=== PATIENT | male | born 1965 | race Caucasian/White ===

== ENCOUNTER 2017-04-04 05:43 | Inpatient (IN) ==
[2017-04-04] MEDS ORDERED: VANCOMYCIN INJ 1,500 MG in SODIUM CHLORIDE 0.9% 500 ML IV STA (07:32)
[2017-04-04 07:38] LABS: Basophils # 0.1 10*3/uL (0.0-0.2); Basophils % 0.7 % (0.0-0.8); Eosinophils # 0.2 10*3/uL (0.0-0.87); Hematocrit 40.4 VOL% (42.0-52.0); Hemoglobin 13.6 GM/DL (14.0-18.0); Immature Granulocytes % 0.3 %; Immature Granulocytes Absolute 0.03 #; Lymphocytes # 2.3 10*3/uL (1.4-4.0); Lymphocytes % 26.9 % (21.2-54.2); Mean Corpuscular HGB Conc 33.7 GM/DL (32-36); Mean Corpuscular Hemoglobin 31 PG (27-34); Mean Corpuscular Volume 92.9 FL (87-102); Mean Platelet Volume 9.5 FL (9.6-12.0); Monocytes # 0.8 10*3/uL (0.11-0.8); Monocytes % 9.8 % (1.7-12.7); Neutrophils # 5.2 10*3/uL (1.4-7.4); Neutrophils % 60.3 % (38.7-73.9); Platelet Count 342 T/CUMM (130-400); Red Blood Count 4.35 MC/CUMM (3.8-5.5); White Blood Count 8.6 T/CUMM (4-12)
[2017-04-04 08:05] LABS: Calcium 8.9 MG/DL (8.5-10.1); Osmolality,Calculated 279.4 MOS/KG (273-304); Potassium 3.9 MMOL/L (3.5-5.1); Uric Acid 5.4 MG/DL (3.5-7.2)
[2017-04-04] MEDS ORDERED: ONDANSETRON 4 MG/2 ML VIAL IV PRN (08:55)
[2017-04-04] MEDS ORDERED: ACETAMINOPHEN 325 MG TABLET PO PRN (08:55)
[2017-04-04] MEDS: ENOXAPARIN 40 MG/0.4 ML SYRINGE SUBCUT SCH (11:19)
[2017-04-04] MEDS: PANTOPRAZOLE 40 MG TABLET PO SCH (11:19)
[2017-04-04 11:20] LABS: Folate 18.9 NG/ML (5.4-24.0)
[2017-04-04] MEDS ORDERED: ROPIVACAINE 0.5% 30 ML VIAL ONE (13:25)
[2017-04-04] MEDS: SODIUM CHLORIDE 0.9% 1,000 ML IV SCH ×2 (13:31→14:28)
[2017-04-04] MEDS: CEFTAROLINE 600 MG in SODIUM CHLORIDE 0.9% 100 ML IV SCH (14:28)
[2017-04-05] MEDS: SODIUM CHLORIDE 0.9% 1,000 ML IV SCH ×2 (00:28→20:07)
[2017-04-05] MEDS: CEFTAROLINE 600 MG in SODIUM CHLORIDE 0.9% 100 ML IV SCH ×3 (01:25→20:37)
[2017-04-05 06:31] LABS: Basophils # 0.1 10*3/uL (0.0-0.2); Basophils % 1.5 % (0.0-0.8); Eosinophils # 0.2 10*3/uL (0.0-0.87); Eosinophils % 3.4 % (0.00-10.9); Hematocrit 37.8 VOL% (42.0-52.0); Hemoglobin 12.4 GM/DL (14.0-18.0); Immature Granulocytes % 0.6 %; Immature Granulocytes Absolute 0.03 #; Lymphocytes # 2.1 10*3/uL (1.4-4.0); Lymphocytes % 38.7 % (21.2-54.2); Mean Corpuscular HGB Conc 32.8 GM/DL (32-36); Mean Corpuscular Hemoglobin 31 PG (27-34); Mean Corpuscular Volume 94.5 FL (87-102); Mean Platelet Volume 9.9 FL (9.6-12.0); Monocytes # 0.5 10*3/uL (0.11-0.8); Monocytes % 9.5 % (1.7-12.7); Neutrophils # 2.5 10*3/uL (1.4-7.4); Neutrophils % 46.3 % (38.7-73.9); Platelet Count 309 T/CUMM (130-400); White Blood Count 5.4 T/CUMM (4-12)
[2017-04-05] MEDS ORDERED: BUPIVACAINE 0.25% 50 ML VIAL ONE (06:34)
[2017-04-05 07:05] LABS: Albumin 2.8 G/DL (3.4-5.0); Bilirubin,Total 0.4 MG/DL (0.2-1.0); Calcium 8.2 MG/DL (8.5-10.1); Potassium 3.9 MMOL/L (3.5-5.1); Total Protein 6.6 G/DL (6.4-8.3)
[2017-04-05] MEDS ORDERED: diphenhydrAMINE 50 MG/1 ML VIAL ONE (07:59)
[2017-04-05] MEDS ORDERED: diphenhydrAMINE 50 MG/1 ML VIAL IV PRN (08:03)
[2017-04-05] MEDS ORDERED: MIDAZOLAM 2 MG/2 ML VIAL ONE (08:10)
[2017-04-05] MEDS ORDERED: fentaNYL 100 MCG/2 ML VIAL ONE (08:10)
[2017-04-05] MEDS ORDERED: PROPOFOL 200 MG/20 ML VIAL IV ONE (08:10)
[2017-04-05] MEDS ORDERED: KETAMINE 500 MG/10 ML VIAL ONE (08:11)
[2017-04-05] MEDS ORDERED: SODIUM CHLORIDE 0.9% 250 ML IV ONE (08:11)
[2017-04-05] MEDS: ENOXAPARIN 40 MG/0.4 ML SYRINGE SUBCUT SCH (08:39)
[2017-04-05] MEDS: PANTOPRAZOLE 40 MG TABLET PO SCH (08:39)
[2017-04-06 05:48] LABS: Basophils # 0.1 10*3/uL (0.0-0.2); Basophils % 0.8 % (0.0-0.8); Eosinophils # 0.1 10*3/uL (0.0-0.87); Eosinophils % 1.6 % (0.00-10.9); Hematocrit 37.1 VOL% (42.0-52.0); Hemoglobin 12.8 GM/DL (14.0-18.0); Immature Granulocytes % 0.3 %; Immature Granulocytes Absolute 0.02 #; Lymphocytes # 2.3 10*3/uL (1.4-4.0); Mean Corpuscular HGB Conc 34.5 GM/DL (32-36); Mean Corpuscular Hemoglobin 32 PG (27-34); Mean Corpuscular Volume 91.4 FL (87-102); Mean Platelet Volume 10.1 FL (9.6-12.0); Monocytes # 0.6 10*3/uL (0.11-0.8); Monocytes % 7.9 % (1.7-12.7); Neutrophils # 4.5 10*3/uL (1.4-7.4); Neutrophils % 59.4 % (38.7-73.9); Platelet Count 331 T/CUMM (130-400); Red Blood Count 4.06 MC/CUMM (3.8-5.5); White Blood Count 7.5 T/CUMM (4-12)
[2017-04-06 06:22] LABS: Calcium 8.1 MG/DL (8.5-10.1); Potassium 4.1 MMOL/L (3.5-5.1)
[2017-04-06] MEDS: SODIUM CHLORIDE 0.9% 1,000 ML IV SCH ×2 (06:37→17:24)
[2017-04-06] MEDS: PANTOPRAZOLE 40 MG TABLET PO SCH (08:49)
[2017-04-06] MEDS: ENOXAPARIN 40 MG/0.4 ML SYRINGE SUBCUT SCH (08:53)
[2017-04-06] MEDS: CEFTAROLINE 600 MG in SODIUM CHLORIDE 0.9% 100 ML IV SCH ×2 (10:24→21:53)
[2017-04-07] MEDS: SODIUM CHLORIDE 0.9% 1,000 ML IV SCH ×2 (04:43→15:16)
[2017-04-07] MEDS: ENOXAPARIN 40 MG/0.4 ML SYRINGE SUBCUT SCH (08:52)
[2017-04-07] MEDS: PANTOPRAZOLE 40 MG TABLET PO SCH (08:52)
[2017-04-07] MEDS: CEFTAROLINE 600 MG in SODIUM CHLORIDE 0.9% 100 ML IV SCH ×2 (08:55→20:31)
[2017-04-07] MEDS: MORPHINE 2 MG/1 ML SYRINGE IV PRN (15:03)
[2017-04-08] MEDS: SODIUM CHLORIDE 0.9% 1,000 ML IV SCH ×2 (05:45→17:13)
[2017-04-08] MEDS ORDERED: SILVER NITRATE STICK 1 EACH TOP ONE ×2 (07:32→07:55)
[2017-04-08] MEDS: MORPHINE 2 MG/1 ML SYRINGE IV PRN (07:41)
[2017-04-08] MEDS: PANTOPRAZOLE 40 MG TABLET PO SCH (08:34)
[2017-04-08] MEDS: CEFTAROLINE 600 MG in SODIUM CHLORIDE 0.9% 100 ML IV SCH ×2 (08:35→20:45)
[2017-04-08] MEDS: ENOXAPARIN 40 MG/0.4 ML SYRINGE SUBCUT SCH (08:35)
[2017-04-09] MEDS: SODIUM CHLORIDE 0.9% 1,000 ML IV SCH ×2 (04:27→16:09)
[2017-04-09] MEDS: CEFTAROLINE 600 MG in SODIUM CHLORIDE 0.9% 100 ML IV SCH ×2 (08:20→20:35)
[2017-04-09] MEDS: ENOXAPARIN 40 MG/0.4 ML SYRINGE SUBCUT SCH (09:48)
[2017-04-09] MEDS: PANTOPRAZOLE 40 MG TABLET PO SCH (09:48)
[2017-04-09] MEDS: NICOTINE 21 MG/24 HR PATCH TRANSDERM SCH (09:53)
[2017-04-10] MEDS: SODIUM CHLORIDE 0.9% 1,000 ML IV SCH ×2 (03:02→15:53)
[2017-04-10] MEDS: ENOXAPARIN 40 MG/0.4 ML SYRINGE SUBCUT SCH (08:43)
[2017-04-10] MEDS: NICOTINE 21 MG/24 HR PATCH TRANSDERM SCH (08:44)
[2017-04-10] MEDS: CEFTAROLINE 600 MG in SODIUM CHLORIDE 0.9% 100 ML IV SCH (08:44)
[2017-04-10] MEDS: PANTOPRAZOLE 40 MG TABLET PO SCH (08:44)
[2017-04-10 11:48] VITALS: BP 104/60
[2017-04-10] MEDS ORDERED: DIPH/TET/ACEL PERT BOOSTER VACCINE 0.5 ML VIAL IM ONE (12:56)
== END 2017-04-10 15:54 | disposition home or self-care (01) | DRG 505 ==
LOC: N.ED 05:43 → N.EDINP 07:51 → SUATTDRO 07:51 → N.2E 10:35
PROVIDERS: ADMIT Internal Medicine; ATTEND Internal Medicine

== ENCOUNTER 2017-08-16 13:13 | Inpatient (IN) ==
[2017-08-16] MEDS ORDERED: SODIUM CHLORIDE 0.9% 1,000 ML IV STA (14:12)
[2017-08-16] MEDS ORDERED: VANCOMYCIN INJ 1,000 MG in SODIUM CHLORIDE 0.9% 250 ML IV STA (14:12)
[2017-08-16 14:34] LABS: Basophils # 0.1 10*3/uL (0.0-0.2); Basophils % 0.8 % (0.0-0.8); Eosinophils # 0.2 10*3/uL (0.0-0.87); Eosinophils % 2.2 % (0.00-10.9); Hematocrit 47.6 VOL% (42.0-52.0); Hemoglobin 16.1 GM/DL (14.0-18.0); Immature Granulocytes % 0.6 %; Immature Granulocytes Absolute 0.05 #; Lymphocytes # 3.6 10*3/uL (1.4-4.0); Lymphocytes % 41.9 % (21.2-54.2); Mean Corpuscular HGB Conc 33.8 GM/DL (32-36); Mean Corpuscular Hemoglobin 31 PG (27-34); Mean Corpuscular Volume 91.7 FL (87-102); Mean Platelet Volume 10.2 FL (9.6-12.0); Monocytes # 0.7 10*3/uL (0.11-0.8); Monocytes % 7.8 % (1.7-12.7); Neutrophils % 46.7 % (38.7-73.9); Platelet Count 313 T/CUMM (130-400); Red Blood Count 5.19 MC/CUMM (3.8-5.5); Red Cell Distribution Width 12.7 % (9.3-17.3); White Blood Count 8.6 T/CUMM (4-12)
[2017-08-16 14:51] LABS: Alanine Aminotransferase 62 U/L (16-61); Albumin 4.1 G/DL (3.4-5.0); Alkaline Phosphatase 113 U/L (45-117); Aspartate Amino Transferase 66 U/L (0-37); Blood Urea Nitrogen 11 MG/DL (7-18); Glucose 76 MG/DL (74-106); Lactic Acid 1.7 MMOL/L (0.4-2.0); Osmolality,Calculated 272.7 MOS/KG (273-304); Potassium 4.4 MMOL/L (3.5-5.1); Sodium 138 MMOL/L (136-145); Total Protein 8.9 G/DL (6.4-8.3)
[2017-08-16 14:52] LABS: PT Patient Result 10.2 SECS; Troponin I Only < 0.015 NG/ML (0.00-0.045)
[2017-08-16 15:24] LABS: Barbiturates Screen,Urine Negative (Negative); Benzodiazepines Screen,Urine Negative (Negative); Cannabinoid Screen,Urine Negative (Negative); Opiate Screen,Urine Negative (Negative); Phencyclidine Screen,Urine Negative (Negative)
[2017-08-16 15:29] LABS: Apearance,Urine CLEAR (Clear); Bilirubin,Urine Negative (Negative); Blood, Urine Negative (Negative); Glucose,Urine (UA) Negative (Negative); Ketones,Urine Negative (Negative); Mucus,Urine Occasional /LPF (Occasional); Nitrite,Urine Negative (Negative); Protein,Urine Negative; RBC,Urine <1 /HPF (0-4); Urine Color Yellow (Yellow); Urine Specific Gravity 1.025 (1.001-1.035); WBC,Urine 1 /HPF (0-6)
[2017-08-16] MEDS ORDERED: GLUCAGON 1 MG VIAL IM PRN (16:24)
[2017-08-16] MEDS ORDERED: DEXTROSE 50% 25 GM/50 ML VIAL IV PRN (16:24)
[2017-08-16] MEDS ORDERED: ONDANSETRON 4 MG/2 ML VIAL IV PRN (16:24)
[2017-08-16] MEDS ORDERED: DOCUSATE SODIUM 100 MG CAPSULE PO PRN (16:24)
[2017-08-16] MEDS ORDERED: ACETAMINOPHEN 325 MG TABLET PO PRN (16:24)
[2017-08-16 16:52] LABS: Sedimentation Rate-Westergren 20 MM/HR (0-20)
[2017-08-16] MEDS: INSULIN REGULAR 100 UNIT/ML SUBCUT SCH (17:52)
[2017-08-16] MEDS: SODIUM CHLORIDE 0.9% 1,000 ML IV SCH (18:23)
[2017-08-16] MEDS: VANCOMYCIN INJ 1,250 MG in SODIUM CHLORIDE 0.9% 250 ML IV SCH (20:57)
[2017-08-17] MEDS: INSULIN REGULAR 100 UNIT/ML SUBCUT SCH ×5 (02:57→21:21)
[2017-08-17] MEDS: SODIUM CHLORIDE 0.9% 1,000 ML IV SCH ×2 (02:58→19:49)
[2017-08-17 05:13] LABS: Basophils # 0.1 10*3/uL (0.0-0.2); Eosinophils # 0.2 10*3/uL (0.0-0.87); Eosinophils % 2.5 % (0.00-10.9); Hematocrit 42.1 VOL% (42.0-52.0); Hemoglobin 14.4 GM/DL (14.0-18.0); Immature Granulocytes % 0.6 %; Immature Granulocytes Absolute 0.05 #; Lymphocytes # 3.8 10*3/uL (1.4-4.0); Lymphocytes % 45.3 % (21.2-54.2); Mean Corpuscular HGB Conc 34.2 GM/DL (32-36); Mean Corpuscular Hemoglobin 31 PG (27-34); Mean Corpuscular Volume 89.2 FL (87-102); Mean Platelet Volume 10.3 FL (9.6-12.0); Monocytes # 0.7 10*3/uL (0.11-0.8); Monocytes % 8.4 % (1.7-12.7); Neutrophils # 3.5 10*3/uL (1.4-7.4); Neutrophils % 42.2 % (38.7-73.9); Platelet Count 270 T/CUMM (130-400); Red Blood Count 4.72 MC/CUMM (3.8-5.5); Red Cell Distribution Width 12.5 % (9.3-17.3); White Blood Count 8.4 T/CUMM (4-12)
[2017-08-17 05:45] LABS: Calcium 8.3 MG/DL (8.5-10.1); Osmolality,Calculated 274.5 MOS/KG (273-304); Potassium 3.8 MMOL/L (3.5-5.1)
[2017-08-17] MEDS: PANTOPRAZOLE 40 MG TABLET PO SCH (08:24)
[2017-08-17] MEDS: VANCOMYCIN INJ 1,250 MG in SODIUM CHLORIDE 0.9% 250 ML IV SCH ×2 (08:30→21:21)
[2017-08-17] MEDS ORDERED: LIDOCAINE 1%/EPI INJ 20 ML VIAL ONE (10:42)
[2017-08-17] MEDS ORDERED: SEVOFLURANE 1 UNIT/15 MINUTE INH ONE (11:40)
[2017-08-17] MEDS ORDERED: PROPOFOL 200 MG/20 ML VIAL IV ONE (11:40)
[2017-08-17] MEDS ORDERED: DEXAMETHASONE 10 MG/1 ML VIAL ONE (11:41)
[2017-08-17] MEDS ORDERED: ONDANSETRON 4 MG/2 ML VIAL ONE (11:41)
[2017-08-17] MEDS ORDERED: KETOROLAC 30 MG/1 ML VIAL ONE (11:41)
[2017-08-17] MEDS ORDERED: MIDAZOLAM 2 MG/2 ML VIAL ONE (11:41)
[2017-08-17] MEDS ORDERED: PHENYLEPHRINE 1 MG/10 ML SYRINGE IV ONE (11:41)
[2017-08-17] MEDS ORDERED: fentaNYL 100 MCG/2 ML VIAL ONE (11:41)
[2017-08-17] MEDS: MORPHINE 4 MG/1 ML VIAL IV PRN (14:34)
[2017-08-18] MEDS: MORPHINE 4 MG/1 ML VIAL IV PRN ×3 (03:37→20:04)
[2017-08-18] MEDS: SODIUM CHLORIDE 0.9% 1,000 ML IV SCH ×3 (03:50→17:22)
[2017-08-18] MEDS: INSULIN REGULAR 100 UNIT/ML SUBCUT SCH ×4 (08:09→22:43)
[2017-08-18] MEDS: PANTOPRAZOLE 40 MG TABLET PO SCH (08:10)
[2017-08-18] MEDS: metFORMIN 500 MG TABLET PO SCH (08:52)
[2017-08-18] MEDS: VANCOMYCIN INJ 1,250 MG in SODIUM CHLORIDE 0.9% 250 ML IV SCH ×2 (08:52→17:22)
[2017-08-19] MEDS: VANCOMYCIN INJ 1,250 MG in SODIUM CHLORIDE 0.9% 250 ML IV SCH ×3 (00:57→17:21)
[2017-08-19] MEDS: SODIUM CHLORIDE 0.9% 1,000 ML IV SCH ×2 (03:30→15:40)
[2017-08-19] MEDS: INSULIN REGULAR 100 UNIT/ML SUBCUT SCH ×4 (07:51→23:49)
[2017-08-19] MEDS: PANTOPRAZOLE 40 MG TABLET PO SCH (09:15)
[2017-08-19] MEDS: metFORMIN 500 MG TABLET PO SCH (09:15)
[2017-08-20] MEDS: SODIUM CHLORIDE 0.9% 1,000 ML IV SCH ×2 (00:49→08:58)
[2017-08-20] MEDS: VANCOMYCIN INJ 1,250 MG in SODIUM CHLORIDE 0.9% 250 ML IV SCH ×2 (00:54→08:52)
[2017-08-20 00:55] LABS: Calcium 8.2 MG/DL (8.5-10.1); Osmolality,Calculated 283.8 MOS/KG (273-304); Potassium 3.6 MMOL/L (3.5-5.1)
[2017-08-20] MEDS: INSULIN REGULAR 100 UNIT/ML SUBCUT SCH ×2 (08:03→12:16)
[2017-08-20] MEDS: metFORMIN 500 MG TABLET PO SCH (08:52)
[2017-08-20 12:14] VITALS: BP 120/77
== END 2017-08-20 15:43 | disposition home or self-care (01) | DRG 617 ==
LOC: N.ED 13:13 → N.EDINP 15:25 → N.2E 17:38
PROVIDERS: ADMIT Internal Medicine Geriatric Medicine; ATTEND Internal Medicine Geriatric Medicine

== ENCOUNTER 2020-02-02 12:30 | Inpatient (IN) ==
[2020-02-02 15:24] LABS: Basophils # 0.1 10*3/uL (0.0-0.2); Basophils % 0.6 % (0.0-0.8); Eosinophils # 0.3 10*3/uL (0.0-0.87); Eosinophils % 2.7 % (0.00-10.9); Hematocrit 42.3 VOL% (42.0-52.0); Hemoglobin 14.6 GM/DL (14.0-18.0); Immature Granulocytes % 0.4 %; Immature Granulocytes Absolute 0.05 #; Lymphocytes # 2.5 10*3/uL (1.4-4.0); Lymphocytes % 19.8 % (21.2-54.2); Mean Corpuscular HGB Conc 34.5 GM/DL (32-36); Mean Platelet Volume 9.7 FL (9.6-12.0); Monocytes % 9.4 % (1.7-12.7); Neutrophils % 67.1 % (38.7-73.9); Platelet Count 303 T/CUMM (130-400); Red Blood Count 4.55 MC/CUMM (3.8-5.5); Red Cell Distribution Width 11.9 % (9.3-17.3); White Blood Count 12.8 T/CUMM (4-12)
[2020-02-02 15:44] LABS: Albumin 3.3 G/DL (3.4-5.0); Bilirubin,Total 0.8 MG/DL (0.2-1.0); Calcium 8.6 MG/DL (8.5-10.1); Osmolality,Calculated 266.2 MOS/KG (273-304); Total Protein 8.3 G/DL (6.4-8.3)
[2020-02-02 15:46] LABS: Barbiturates Screen,Urine Negative (Negative); Benzodiazepines Screen,Urine Negative (Negative); Cannabinoid Screen,Urine Negative (Negative); Opiate Screen,Urine Negative (Negative); Phencyclidine Screen,Urine Negative (Negative)
[2020-02-02] MEDS ORDERED: GLUCAGON 1 MG VIAL IM PRN ×2 (17:52)
[2020-02-02] MEDS ORDERED: DEXTROSE 50% 25 GM/50 ML VIAL IV PRN ×2 (17:52)
[2020-02-02] MEDS: SODIUM CHLORIDE 0.9% 1,000 ML IV SCH (22:53)
[2020-02-02] MEDS: INSULIN LISPRO 100 UNIT/ML SUBCUT SCH (22:54)
[2020-02-02] MEDS: PIPERACILLIN/TAZOBACTAM 3,375 MG in SODIUM CHLORIDE 0.9% 100 ML IV SCH (22:54)
[2020-02-02] MEDS: NICOTINE 14 MG/24 HR PATCH TRANSDERM SCH (22:55)
[2020-02-02] MEDS: VANCOMYCIN INJ 1,500 MG in SODIUM CHLORIDE 0.9% 500 ML IV SCH (22:55)
[2020-02-03] MEDS: PIPERACILLIN/TAZOBACTAM 3,375 MG in SODIUM CHLORIDE 0.9% 100 ML IV SCH ×3 (05:04→21:32)
[2020-02-03 05:41] LABS: Basophils # 0.1 10*3/uL (0.0-0.2); Eosinophils # 0.4 10*3/uL (0.0-0.87); Eosinophils % 5.4 % (0.00-10.9); Hematocrit 39.8 VOL% (42.0-52.0); Hemoglobin 13.4 GM/DL (14.0-18.0); Immature Granulocytes % 0.7 %; Immature Granulocytes Absolute 0.06 #; Lymphocytes # 2.4 10*3/uL (1.4-4.0); Lymphocytes % 28.9 % (21.2-54.2); Mean Corpuscular HGB Conc 33.7 GM/DL (32-36); Mean Corpuscular Volume 94.1 FL (87-102); Mean Platelet Volume 9.9 FL (9.6-12.0); Monocytes % 11.1 % (1.7-12.7); Neutrophils % 52.9 % (38.7-73.9); Platelet Count 268 T/CUMM (130-400); Red Blood Count 4.23 MC/CUMM (3.8-5.5); Red Cell Distribution Width 11.9 % (9.3-17.3); White Blood Count 8.1 T/CUMM (4-12)
[2020-02-03 06:08] LABS: Calcium 8.5 MG/DL (8.5-10.1); Osmolality,Calculated 275.7 MOS/KG (273-304)
[2020-02-03] MEDS: VANCOMYCIN INJ 1,500 MG in SODIUM CHLORIDE 0.9% 500 ML IV SCH (10:06)
[2020-02-03] MEDS: NICOTINE 14 MG/24 HR PATCH TRANSDERM SCH ×2 (10:06→10:17)
[2020-02-03] MEDS: INSULIN LISPRO 100 UNIT/ML SUBCUT SCH ×4 (10:07→21:40)
[2020-02-03] MEDS: FOLIC ACID 1 MG TABLET PO SCH (10:08)
[2020-02-03] MEDS: lisinopriL 10 MG TABLET PO SCH (10:08)
[2020-02-03] MEDS: THIAMINE 100 MG TABLET PO SCH (10:08)
[2020-02-03] MEDS: SODIUM CHLORIDE 0.9% 1,000 ML IV SCH ×2 (10:11→15:41)
[2020-02-03] MEDS ORDERED: ALBUTEROL 2.5 MG/3 ML NEB RESP TX ONE (10:11)
[2020-02-03] MEDS ORDERED: DIAZEPAM 5 MG TABLET PO ONE (10:11)
[2020-02-03] MEDS ORDERED: FAMOTIDINE 20 MG TABLET PO ONE (10:30)
[2020-02-03] MEDS ORDERED: LIDOCAINE 2% 5 ML VIAL ONE (11:10)
[2020-02-03] MEDS ORDERED: propofoL 200 MG/20 ML VIAL IV ONE (11:10)
[2020-02-03] MEDS ORDERED: MIDAZOLAM 2 MG/2 ML VIAL ONE (11:10)
[2020-02-03] MEDS ORDERED: fentaNYL 100 MCG/2 ML VIAL ONE (11:11)
[2020-02-03] MEDS ORDERED: HYDROmorphone 2 MG/1 ML VIAL ONE (11:50)
[2020-02-03] MEDS ORDERED: KETOROLAC 30 MG/1 ML VIAL ONE (11:53)
[2020-02-03] MEDS ORDERED: ONDANSETRON 4 MG/2 ML VIAL IV PRN (12:34)
[2020-02-03] MEDS ORDERED: HYDROmorphone 2 MG/1 ML VIAL IV PRN (12:34)
[2020-02-03] MEDS ORDERED: GLUCAGON 1 MG VIAL IM PRN (14:39)
[2020-02-03] MEDS ORDERED: DEXTROSE 50% 25 GM/50 ML VIAL IV PRN (14:39)
[2020-02-04] MEDS: VANCOMYCIN INJ 1,500 MG in SODIUM CHLORIDE 0.9% 500 ML IV SCH ×2 (01:38→09:30)
[2020-02-04] MEDS: PIPERACILLIN/TAZOBACTAM 3,375 MG in SODIUM CHLORIDE 0.9% 100 ML IV SCH ×2 (03:41→13:47)
[2020-02-04 05:49] LABS: Basophils # 0.1 10*3/uL (0.0-0.2); Eosinophils # 0.3 10*3/uL (0.0-0.87); Eosinophils % 3.7 % (0.00-10.9); Hematocrit 39.6 VOL% (42.0-52.0); Hemoglobin 12.9 GM/DL (14.0-18.0); Immature Granulocytes % 0.4 %; Immature Granulocytes Absolute 0.03 #; Lymphocytes # 1.9 10*3/uL (1.4-4.0); Lymphocytes % 23.3 % (21.2-54.2); Mean Corpuscular HGB Conc 32.6 GM/DL (32-36); Mean Corpuscular Volume 95.7 FL (87-102); Mean Platelet Volume 10.3 FL (9.6-12.0); Monocytes % 7.9 % (1.7-12.7); Neutrophils % 63.7 % (38.7-73.9); Platelet Count 286 T/CUMM (130-400); Red Blood Count 4.14 MC/CUMM (3.8-5.5); Red Cell Distribution Width 11.8 % (9.3-17.3); White Blood Count 8.1 T/CUMM (4-12)
[2020-02-04 05:59] LABS: Calcium 8.2 MG/DL (8.5-10.1); Osmolality,Calculated 283.1 MOS/KG (273-304)
[2020-02-04] MEDS: INSULIN LISPRO 100 UNIT/ML SUBCUT SCH ×2 (07:52→12:18)
[2020-02-04] MEDS: FOLIC ACID 1 MG TABLET PO SCH (09:30)
[2020-02-04] MEDS: THIAMINE 100 MG TABLET PO SCH (09:30)
[2020-02-04] MEDS: lisinopriL 10 MG TABLET PO SCH (09:30)
[2020-02-04] MEDS: NICOTINE 14 MG/24 HR PATCH TRANSDERM SCH (09:36)
[2020-02-04 11:19] VITALS: BP 122/80
== END 2020-02-04 15:40 | disposition home health service (06) | DRG 305 ==
LOC: N.ED 12:30 → N.EDINP 17:52 → N.3E 20:40
PROVIDERS: ADMIT Internal Medicine; ATTEND Internal Medicine

== ENCOUNTER 2020-04-15 10:37 | Inpatient (IN) ==
[2020-04-15 12:02] LABS: Basophils # 0.1 10*3/uL (0.0-0.2); Basophils % 0.7 % (0.0-0.8); Eosinophils # 0.1 10*3/uL (0.0-0.87); Eosinophils % 0.4 % (0.00-10.9); Hematocrit 42.5 VOL% (42.0-52.0); Immature Granulocytes % 0.8 %; Immature Granulocytes Absolute 0.11 #; Lymphocytes # 3.3 10*3/uL (1.4-4.0); Lymphocytes % 23.6 % (21.2-54.2); Mean Corpuscular HGB Conc 35.3 GM/DL (32-36); Mean Corpuscular Volume 88.9 FL (87-102); Monocytes % 8.4 % (1.7-12.7); Neutrophils % 66.1 % (38.7-73.9); Platelet Count 320 T/CUMM (130-400); Red Blood Count 4.78 MC/CUMM (3.8-5.5); Red Cell Distribution Width 12.4 % (9.3-17.3)
[2020-04-15 12:22] LABS: Albumin 3.8 G/DL (3.4-5.0); Bilirubin,Total 1.4 MG/DL (0.2-1.0); Calcium 9.2 MG/DL (8.5-10.1); Osmolality,Calculated 278.5 MOS/KG (273-304); Potassium 3.7 MMOL/L (3.5-5.1)
[2020-04-15 12:41] LABS: Bilirubin,Urine Negative (Negative); Blood, Urine Negative (Negative); Glucose,Urine (UA) Negative (Negative); Hyaline Casts,Urine 5 /LPF (0-3); Ketones,Urine Negative (Negative); Mucus,Urine Few /LPF (Occasional); Nitrite,Urine Negative (Negative); Protein,Urine 30 MG/DL; RBC,Urine 1 /HPF (0-4); Urine Appearance CLEAR (Clear); Urine Color Amber (Yellow); Urine Specific Gravity 1.023 (1.001-1.035); WBC,Urine 4 /HPF (0-6)
[2020-04-15 12:46] LABS: Barbiturates Screen,Urine Negative (Negative); Benzodiazepines Screen,Urine Negative (Negative); Cannabinoid Screen,Urine Negative (Negative); Opiate Screen,Urine Negative (Negative); Phencyclidine Screen,Urine Negative (Negative)
[2020-04-15] MEDS ORDERED: ACETAMINOPHEN 325 MG TABLET PO PRN (14:13)
[2020-04-15] MEDS ORDERED: BISACODYL 5 MG TABLET PO PRN (14:13)
[2020-04-15] MEDS ORDERED: HYDROmorphone 2 MG/1 ML VIAL IV PRN (14:13)
[2020-04-15] MEDS ORDERED: ONDANSETRON 4 MG/2 ML VIAL IV PRN (14:13)
[2020-04-15] MEDS ORDERED: LORazepam 2 MG/1 ML VIAL IV PRN (14:50)
[2020-04-15] MEDS: LACTATED RINGERS 1,000 ML IV SCH (15:45)
[2020-04-15] MEDS: PIPERACILLIN/TAZOBACTAM 3,375 MG in SODIUM CHLORIDE 0.9% 100 ML IV SCH ×2 (15:45→23:18)
[2020-04-15] MEDS: chlordiazePOXIDE 25 MG CAPSULE PO SCH ×2 (15:50→21:01)
[2020-04-15 16:08] LABS: PT Patient Result 10.7 SECS (9.8-11.9); Partial Thromboplastin Time 27.9 SECS (23.9-33.8)
[2020-04-15 19:59] LABS: Vitamin B12 341 PG/ML (211-911)
[2020-04-16] MEDS: chlordiazePOXIDE 25 MG CAPSULE PO SCH ×4 (02:43→23:10)
[2020-04-16 05:37] LABS: Basophils # 0.1 10*3/uL (0.0-0.2); Basophils % 1.2 % (0.0-0.8); Eosinophils # 0.6 10*3/uL (0.0-0.87); Eosinophils % 6.4 % (0.00-10.9); Hematocrit 42.2 VOL% (42.0-52.0); Hemoglobin 13.9 GM/DL (14.0-18.0); Immature Granulocytes % 0.6 %; Immature Granulocytes Absolute 0.05 #; Lymphocytes # 3.5 10*3/uL (1.4-4.0); Lymphocytes % 39.2 % (21.2-54.2); Mean Corpuscular HGB Conc 32.9 GM/DL (32-36); Mean Corpuscular Volume 92.7 FL (87-102); Mean Platelet Volume 10.5 FL (9.6-12.0); Monocytes % 9.4 % (1.7-12.7); Neutrophils % 43.2 % (38.7-73.9); Platelet Count 288 T/CUMM (130-400); Red Blood Count 4.55 MC/CUMM (3.8-5.5); Red Cell Distribution Width 12.5 % (9.3-17.3); White Blood Count 8.9 T/CUMM (4-12)
[2020-04-16 06:07] LABS: Albumin 3.2 G/DL (3.4-5.0); Calcium 8.4 MG/DL (8.5-10.1); Osmolality,Calculated 279.4 MOS/KG (273-304); Potassium 3.5 MMOL/L (3.5-5.1); Total Protein 7.2 G/DL (6.4-8.3)
[2020-04-16] MEDS: PIPERACILLIN/TAZOBACTAM 3,375 MG in SODIUM CHLORIDE 0.9% 100 ML IV SCH ×2 (06:40→16:16)
[2020-04-16] MEDS: LACTATED RINGERS 1,000 ML IV SCH ×2 (07:03)
[2020-04-16] MEDS: PANTOPRAZOLE 40 MG TABLET PO SCH (09:06)
[2020-04-16] MEDS: THIAMINE 100 MG TABLET PO SCH (09:06)
[2020-04-16] MEDS: FOLIC ACID 1 MG TABLET PO SCH (09:06)
[2020-04-16 10:57] LABS: Folate > 24.0 NG/ML (5.38-24.0)
[2020-04-16] MEDS: KETOROLAC 0.5% OPH SOLN 5 ML BOTTLE LEFT EYE SCH (20:55)
[2020-04-16] MEDS: prednisoLONE ACETATE 1% OPH SUSP 5 ML BOTTLE LEFT EYE SCH (20:55)
[2020-04-16] MEDS: OFLOXACIN 0.3% OPH SOLN 5 ML BOTTLE LEFT EYE SCH (20:55)
[2020-04-16] MEDS: ENOXAPARIN 40 MG/0.4 ML SYRINGE SUBCUT SCH (20:56)
[2020-04-17] MEDS: LACTATED RINGERS 1,000 ML IV SCH ×2 (01:41→09:26)
[2020-04-17] MEDS: PIPERACILLIN/TAZOBACTAM 3,375 MG in SODIUM CHLORIDE 0.9% 100 ML IV SCH ×3 (01:46→17:06)
[2020-04-17 06:04] LABS: Basophils # 0.1 10*3/uL (0.0-0.2); Basophils % 1.6 % (0.0-0.8); Eosinophils # 0.5 10*3/uL (0.0-0.87); Eosinophils % 6.5 % (0.00-10.9); Hematocrit 42.1 VOL% (42.0-52.0); Immature Granulocytes % 0.7 %; Immature Granulocytes Absolute 0.05 #; Lymphocytes # 3.5 10*3/uL (1.4-4.0); Lymphocytes % 45.4 % (21.2-54.2); Mean Corpuscular HGB Conc 33.3 GM/DL (32-36); Mean Corpuscular Volume 92.9 FL (87-102); Mean Platelet Volume 10.1 FL (9.6-12.0); Monocytes % 6.9 % (1.7-12.7); Neutrophils % 38.9 % (38.7-73.9); Platelet Count 303 T/CUMM (130-400); Red Blood Count 4.53 MC/CUMM (3.8-5.5); Red Cell Distribution Width 12.4 % (9.3-17.3); White Blood Count 7.7 T/CUMM (4-12)
[2020-04-17 06:09] LABS: Calcium 8.6 MG/DL (8.5-10.1); Osmolality,Calculated 277.5 MOS/KG (273-304)
[2020-04-17] MEDS ORDERED: fentaNYL 100 MCG/2 ML VIAL ONE (06:22)
[2020-04-17] MEDS ORDERED: MIDAZOLAM 2 MG/2 ML VIAL ONE (06:22)
[2020-04-17] MEDS ORDERED: LIDOCAINE 2% 5 ML VIAL ONE ×3 (06:23→06:29)
[2020-04-17] MEDS ORDERED: ONDANSETRON 4 MG/2 ML VIAL ONE (06:23)
[2020-04-17] MEDS ORDERED: VANCOMYCIN 500 MG VIAL ONE ×2 (06:23→06:25)
[2020-04-17] MEDS ORDERED: EPINEPHrine 1 MG/ML VIAL ONE (06:23)
[2020-04-17] MEDS ORDERED: PHENYLEPHRINE 1 MG/10 ML SYRINGE IV ONE ×2 (06:23→10:29)
[2020-04-17] MEDS ORDERED: propofoL 200 MG/20 ML VIAL IV ONE (06:23)
[2020-04-17] MEDS ORDERED: BALANCED SALT IRRIG SOLN 15 ML BOTTLE ONE (06:23)
[2020-04-17] MEDS ORDERED: TETRACAINE 0.5% OPH SOLN 4 ML BOTTLE ONE (06:24)
[2020-04-17] MEDS ORDERED: HYALURONATE/CHONDROITIN 1 EACH KIT INTRAOCULR ONE ×2 (06:24→08:16)
[2020-04-17] MEDS ORDERED: BUPIVACAINE MPF 0.25% 30 ML VIAL ONE (06:29)
[2020-04-17] MEDS ORDERED: prednisoLONE ACETATE 1% OPH SUSP 5 ML BOTTLE ONE (06:54)
[2020-04-17] MEDS: TROPICAMIDE 1% LEFT EYE SCH ×5 (07:10→10:14)
[2020-04-17] MEDS: PHENYLEPHRINE 2.5% OPH SOLN 15 ML BOTTLE LEFT EYE SCH ×6 (07:10→10:14)
[2020-04-17] MEDS ORDERED: LACTATED RINGERS 1,000 ML IV SCH (07:30)
[2020-04-17] MEDS ORDERED: PHENYLEPHRINE INTRAOCULR ONE (07:33)
[2020-04-17] MEDS ORDERED: [UNRECOGNIZED DRUG - OTHER] INTRAOCULR ONE (07:33)
[2020-04-17] MEDS ORDERED: KETOROLAC INTRAOCULR ONE (07:33)
[2020-04-17] MEDS ORDERED: TRIAMCINOLONE ACETONIDE 40 MG/1 ML VIAL ONE ×2 (07:49→07:53)
[2020-04-17 09:05] LABS: Atypical Lymphocytes Few; Eosinophils 7 % (0-10); Hypochromasia Slight; Lymphocytes 46 % (20-55); Segmented Neutrophils 42 % (50-85); Total Cells Counted 100
[2020-04-17 09:06] LABS: Microcytosis 1+; Platelet Estimate Normal
[2020-04-17] MEDS ORDERED: MEPERIDINE 25 MG/1 ML VIAL ONE (09:16)
[2020-04-17] MEDS ORDERED: ONDANSETRON 4 MG/2 ML VIAL IV PRN (09:17)
[2020-04-17] MEDS: MEPERIDINE 25 MG/1 ML VIAL IV PRN ×2 (09:23→17:58)
[2020-04-17] MEDS: KETOROLAC 0.5% OPH SOLN 5 ML BOTTLE LEFT EYE SCH ×6 (10:13→23:52)
[2020-04-17] MEDS: FOLIC ACID 1 MG TABLET PO SCH (10:15)
[2020-04-17] MEDS: THIAMINE 100 MG TABLET PO SCH (10:15)
[2020-04-17] MEDS: OFLOXACIN 0.3% OPH SOLN 5 ML BOTTLE LEFT EYE SCH ×6 (10:15→23:54)
[2020-04-17] MEDS: PANTOPRAZOLE 40 MG TABLET PO SCH (10:15)
[2020-04-17] MEDS: prednisoLONE ACETATE 1% OPH SUSP 5 ML BOTTLE LEFT EYE SCH ×6 (10:15→23:53)
[2020-04-17] MEDS: chlordiazePOXIDE 25 MG CAPSULE PO SCH ×2 (10:22→17:06)
[2020-04-17] MEDS: ENOXAPARIN 40 MG/0.4 ML SYRINGE SUBCUT SCH (21:00)
[2020-04-18] MEDS: chlordiazePOXIDE 25 MG CAPSULE PO SCH ×2 (00:38→08:52)
[2020-04-18] MEDS: PIPERACILLIN/TAZOBACTAM 3,375 MG in SODIUM CHLORIDE 0.9% 100 ML IV SCH ×2 (00:38→08:54)
[2020-04-18 06:15] LABS: Basophils # 0.1 10*3/uL (0.0-0.2); Eosinophils # 0.3 10*3/uL (0.0-0.87); Eosinophils % 3.9 % (0.00-10.9); Hematocrit 39.2 VOL% (42.0-52.0); Hemoglobin 12.7 GM/DL (14.0-18.0); Immature Granulocytes % 0.4 %; Immature Granulocytes Absolute 0.03 #; Lymphocytes # 2.6 10*3/uL (1.4-4.0); Lymphocytes % 31.6 % (21.2-54.2); Mean Corpuscular HGB Conc 32.4 GM/DL (32-36); Mean Platelet Volume 10.2 FL (9.6-12.0); Monocytes % 6.9 % (1.7-12.7); Neutrophils % 56.2 % (38.7-73.9); Platelet Count 285 T/CUMM (130-400); Red Blood Count 4.17 MC/CUMM (3.8-5.5); Red Cell Distribution Width 12.3 % (9.3-17.3); White Blood Count 8.3 T/CUMM (4-12)
[2020-04-18 06:40] LABS: Calcium 8.4 MG/DL (8.5-10.1); Osmolality,Calculated 278.4 MOS/KG (273-304); Potassium 3.9 MMOL/L (3.5-5.1)
[2020-04-18] MEDS: KETOROLAC 0.5% OPH SOLN 5 ML BOTTLE LEFT EYE SCH ×2 (06:47→08:56)
[2020-04-18] MEDS: OFLOXACIN 0.3% OPH SOLN 5 ML BOTTLE LEFT EYE SCH ×2 (06:48→08:58)
[2020-04-18] MEDS: prednisoLONE ACETATE 1% OPH SUSP 5 ML BOTTLE LEFT EYE SCH ×2 (06:48→08:55)
[2020-04-18 08:00] VITALS: BP 117/72
[2020-04-18] MEDS: FOLIC ACID 1 MG TABLET PO SCH (08:52)
[2020-04-18] MEDS: PANTOPRAZOLE 40 MG TABLET PO SCH (08:52)
[2020-04-18] MEDS: THIAMINE 100 MG TABLET PO SCH (08:53)
== END 2020-04-18 10:52 | disposition home health service (06) | DRG 314 ==
LOC: N.ED 10:37 → N.EDINP 14:13 → N.5E 15:28
PROVIDERS: ADMIT Surgery; ATTEND Surgery
PROC: [UNRECOGNIZED PROCEDURE] (2020-04-17 07:30)

== ENCOUNTER 2022-04-14 11:43 | Inpatient (IN) ==
[2022-04-14] MEDS ORDERED: VANCOMYCIN INJ 1,000 MG in SODIUM CHLORIDE 0.9% 250 ML IV STA (17:26)
[2022-04-14] MEDS ORDERED: KETOROLAC 30 MG/1 ML VIAL IV STA (17:26)
[2022-04-14 17:30] LABS: Basophils # 0.1 10*3/uL (0.0-0.2); Eosinophils # 0.2 10*3/uL (0.0-0.87); Eosinophils % 1.6 % (0.00-10.9); Hematocrit 41.3 VOL% (42.0-52.0); Hemoglobin 13.4 GM/DL (14.0-18.0); Immature Granulocytes % 0.6 %; Immature Granulocytes Absolute 0.07 #; Lymphocytes # 3.7 10*3/uL (1.4-4.0); Lymphocytes % 33.5 % (21.2-54.2); Mean Corpuscular HGB Conc 32.4 GM/DL (32-36); Mean Corpuscular Volume 93.4 FL (87-102); Mean Platelet Volume 9.8 FL (9.6-12.0); Monocytes # 1.1 10*3/uL (0.11-0.8); Monocytes % 10.1 % (1.7-12.7); Neutrophils % 53.2 % (38.7-73.9); Platelet Count 331 T/CUMM (130-400); Red Blood Count 4.42 MC/CUMM (3.8-5.5); Red Cell Distribution Width 12.3 % (9.3-17.3); White Blood Count 10.91 T/CUMM (4-12)
[2022-04-14 17:47] LABS: Albumin 3.2 G/DL (3.4-5.0); Bilirubin,Total 0.6 MG/DL (0.20-1.00); Calcium 8.7 MG/DL (8.5-10.1); Osmolality,Calculated 275.7 MOS/KG (273-304); Potassium 4.4 MMOL/L (3.5-5.1); Total Protein 7.7 G/DL (6.4-8.2)
[2022-04-14] MEDS ORDERED: MORPHINE 2 MG/1 ML SYRINGE IV PRN (19:30)
[2022-04-14] MEDS ORDERED: ONDANSETRON 4 MG/2 ML VIAL IV PRN (19:30)
[2022-04-14] MEDS: PIPERACILLIN/TAZOBACTAM 3,375 MG in SODIUM CHLORIDE 0.9% 100 ML IV SCH (21:28)
[2022-04-15 05:07] LABS: Basophils # 0.1 10*3/uL (0.0-0.2); Basophils % 0.8 % (0.0-0.8); Eosinophils # 0.2 10*3/uL (0.0-0.87); Hemoglobin 12.4 GM/DL (14.0-18.0); Immature Granulocytes % 0.4 %; Immature Granulocytes Absolute 0.04 #; Lymphocytes # 2.9 10*3/uL (1.4-4.0); Lymphocytes % 32.7 % (21.2-54.2); Mean Corpuscular HGB Conc 32.6 GM/DL (32-36); Mean Corpuscular Volume 94.8 FL (87-102); Mean Platelet Volume 9.8 FL (9.6-12.0); Monocytes % 11.6 % (1.7-12.7); Neutrophils % 52.5 % (38.7-73.9); Platelet Count 283 T/CUMM (130-400); Red Blood Count 4.01 MC/CUMM (3.8-5.5); Red Cell Distribution Width 12.3 % (9.3-17.3); White Blood Count 8.99 T/CUMM (4-12)
[2022-04-15] MEDS: VANCOMYCIN INJ 1,250 MG in SODIUM CHLORIDE 0.9% 250 ML IV SCH ×2 (05:20→17:57)
[2022-04-15 05:21] LABS: Calcium 8.6 MG/DL (8.5-10.1); Osmolality,Calculated 284.3 MOS/KG (273-304); Potassium 3.7 MMOL/L (3.5-5.1)
[2022-04-15] MEDS ORDERED: BUPIVACAINE MPF 0.25% 10 ML VIAL ONE ×3 (09:35→10:17)
[2022-04-15] MEDS ORDERED: LIDOCAINE 1%/EPI INJ 20 ML VIAL ONE ×2 (09:35→10:17)
[2022-04-15] MEDS ORDERED: LACTATED RINGERS 1,000 ML IV SCH (10:30)
[2022-04-15] MEDS ORDERED: ROCURONIUM 50 MG/5 ML VIAL IV ONE (10:49)
[2022-04-15] MEDS ORDERED: LIDOCAINE 2% 5 ML VIAL ONE (10:49)
[2022-04-15] MEDS ORDERED: propofoL 200 MG/20 ML VIAL IV ONE ×2 (10:49→11:29)
[2022-04-15] MEDS ORDERED: MIDAZOLAM 2 MG/2 ML VIAL ONE (10:49)
[2022-04-15] MEDS ORDERED: SUCCINYLCHOLINE 200 MG/10 ML VIAL ONE (10:49)
[2022-04-15] MEDS ORDERED: BUPRENORPHINE SL TAB 2 MG TABLET SL ONE (11:00)
[2022-04-15] MEDS ORDERED: SEVOFLURANE 1 UNIT/15 MINUTE INH ONE (11:35)
[2022-04-15] MEDS ORDERED: ONDANSETRON 4 MG/2 ML VIAL ONE (11:35)
[2022-04-15] MEDS: PIPERACILLIN/TAZOBACTAM 3,375 MG in SODIUM CHLORIDE 0.9% 100 ML IV SCH ×2 (12:46→20:44)
[2022-04-15] MEDS: PANTOPRAZOLE 40 MG TABLET PO SCH (13:12)
[2022-04-16] MEDS: VANCOMYCIN INJ 1,250 MG in SODIUM CHLORIDE 0.9% 250 ML IV SCH ×2 (04:41→16:44)
[2022-04-16 04:51] LABS: Basophils # 0.1 10*3/uL (0.0-0.2); Basophils % 0.7 % (0.0-0.8); Eosinophils # 0.3 10*3/uL (0.0-0.87); Eosinophils % 3.2 % (0.00-10.9); Hematocrit 36.4 VOL% (42.0-52.0); Hemoglobin 12.2 GM/DL (14.0-18.0); Immature Granulocytes Absolute 0.08 #; Lymphocytes # 2.7 10*3/uL (1.4-4.0); Lymphocytes % 33.1 % (21.2-54.2); Mean Corpuscular HGB Conc 33.5 GM/DL (32-36); Mean Corpuscular Volume 93.6 FL (87-102); Mean Platelet Volume 9.8 FL (9.6-12.0); Monocytes # 0.8 10*3/uL (0.11-0.8); Platelet Count 288 T/CUMM (130-400); Red Blood Count 3.89 MC/CUMM (3.8-5.5); Red Cell Distribution Width 12.2 % (9.3-17.3); White Blood Count 8.03 T/CUMM (4-12)
[2022-04-16 05:10] LABS: Calcium 8.3 MG/DL (8.5-10.1); Osmolality,Calculated 279.4 MOS/KG (273-304); Potassium 3.7 MMOL/L (3.5-5.1); Risk Ratio 2.84; VLDL Cholesterol 13.4 MG/DL
[2022-04-16] MEDS: PIPERACILLIN/TAZOBACTAM 3,375 MG in SODIUM CHLORIDE 0.9% 100 ML IV SCH ×3 (06:13→21:30)
[2022-04-16] MEDS: GABAPENTIN 400 MG CAPSULE PO SCH ×3 (08:54→21:30)
[2022-04-16] MEDS: SODIUM HYPOCHLORITE 0.25% IRRIG 473 ML BOTTLE TOP SCH (08:55)
[2022-04-16] MEDS: PANTOPRAZOLE 40 MG TABLET PO SCH (08:55)
[2022-04-16] MEDS: NON-FORMULARY MEDICATION (Buprenorphine-Naloxone [Suboxone] 8-2 mg film) SL SCH ×2 (13:33→22:30)
[2022-04-17] MEDS: PIPERACILLIN/TAZOBACTAM 3,375 MG in SODIUM CHLORIDE 0.9% 100 ML IV SCH ×2 (04:15→14:48)
[2022-04-17 05:13] LABS: Basophils # 0.1 10*3/uL (0.0-0.2); Basophils % 0.9 % (0.0-0.8); Eosinophils # 0.3 10*3/uL (0.0-0.87); Eosinophils % 4.3 % (0.00-10.9); Hematocrit 37.9 VOL% (42.0-52.0); Hemoglobin 12.6 GM/DL (14.0-18.0); Immature Granulocytes % 0.8 %; Immature Granulocytes Absolute 0.06 #; Lymphocytes # 2.5 10*3/uL (1.4-4.0); Lymphocytes % 31.8 % (21.2-54.2); Mean Corpuscular HGB Conc 33.2 GM/DL (32-36); Mean Corpuscular Volume 93.3 FL (87-102); Mean Platelet Volume 9.6 FL (9.6-12.0); Monocytes # 0.7 10*3/uL (0.11-0.8); Monocytes % 8.7 % (1.7-12.7); Neutrophils % 53.5 % (38.7-73.9); Platelet Count 312 T/CUMM (130-400); Red Blood Count 4.06 MC/CUMM (3.8-5.5); Red Cell Distribution Width 12.2 % (9.3-17.3); White Blood Count 7.96 T/CUMM (4-12)
[2022-04-17 06:16] LABS: Calcium 8.3 MG/DL (8.5-10.1); Osmolality,Calculated 284.1 MOS/KG (273-304); Potassium 3.6 MMOL/L (3.5-5.1)
[2022-04-17] MEDS: VANCOMYCIN INJ 1,250 MG in SODIUM CHLORIDE 0.9% 250 ML IV SCH (06:41)
[2022-04-17] MEDS: NON-FORMULARY MEDICATION (Buprenorphine-Naloxone [Suboxone] 8-2 mg film) SL SCH (08:46)
[2022-04-17] MEDS: GABAPENTIN 400 MG CAPSULE PO SCH ×2 (08:46→15:10)
[2022-04-17] MEDS: PANTOPRAZOLE 40 MG TABLET PO SCH (08:46)
[2022-04-17] MEDS: SODIUM HYPOCHLORITE 0.25% IRRIG 473 ML BOTTLE TOP SCH (08:46)
[2022-04-17 12:47] VITALS: BP 110/74
== END 2022-04-17 15:14 | disposition home or self-care (01) | DRG 317 ==
LOC: N.ED 11:43 → N.EDINP 19:30 → SUATTDRO 19:30 → N.2E 04-15 02:14
PROVIDERS: ADMIT Internal Medicine; ATTEND Internal Medicine